=== PATIENT | female | born 2000 | race Caucasian/White ===

== ENCOUNTER 2021-02-02 20:22 | Outpatient (CLI) | payer SELFPAY ==
[~2021-02-02] VITALS: Ht 157.5 cm; Wt 66.5 kg
--- NOTE | 2021-02-02 20:30 | NUR ---
PT ARRIVED TO UNIT AMBULATORY WITH A FRIEND WITH COMPLAINTS OF CONTRACTIONS AND BACK PAIN THAT BEGAN AT 0800 TODAY BUT BECAME FOR UNCOMFORTABLE AROUND 1700 THIS EVENING. PT IS A [id number] AT 32.4 WEEKS TODAY. PT SPEAKS NO CITIZEN OF [place] BUT HER SUPPORT PERSON SPEAKS CITIZEN OF [place] BUT STATES THAT SHE ONLY MET THE PT YESTERDAY AT LATTER DAY. PT WAS AN [facility] IN [facility] AND RECENTLY MOVED TO THE [facility] IN OCTOBER OF 2020. PT STATES THAT SHE WAS SEEN IN DECEMBER IN [place] FOR ABDOMINAL PAIN AND DEHYDRATION, WHILE THERE RECEIVED STEROIDS AND COVID SWAB WAS NEGATIVE. PT STATES SHE HAS BEEN IN [place] FOR A MONTH. FOB NOT INVOLVED. STATES SHE CURRENTLY LIVE WITH A WOMAN THE IS HER MOTHER FIGURE AND FEELS SAFE AND HAS SUPPORT SYSTEM. LPNC AT 31.6 WEEKS, HX OF SAB X1. EFM X2 APPLIED, VS OBTAINED, SVE PERFORMED BY Brittany STEVENS RN.
[2021-02-02 20:42] VITALS: BP 114/71; PULSE 101
[2021-02-02 20:45] VITALS: TEMP 98.3
[2021-02-02] MEDS ORDERED: PRENATAL PO (21:16)
[2021-02-02 21:42] VITALS: BP 109/57; PULSE 85
--- NOTE | 2021-02-02 21:42 | NUR ---
SVE unchanged. 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 Off monitor, up to bathroom.
--- NOTE | 2021-02-02 22:15 | NUR ---
DISCHARGE INSTRUCTIONS REVIEWED WITH PT AND FRIEND, UNDERSTANDING VERBALIZED. QUESTIONS ENCOURAGED AND ANSWERED. PT OFF THE UNIT AMBULATORY WITH FRIEND FOR HOME.
== END 2021-02-02 22:10 | disposition home or self-care (01) ==
LOC: LDRO 20:22 → LDR 20:22 → LDRO 22:10
DX: O62.9 Abnormality of forces of labor, unspecified (principal); O26.893 Other specified pregnancy related conditions, third trimester; M54.5 Low back pain; Z3A.32 32 weeks gestation of pregnancy
CPT/HCPCS: OP

== ENCOUNTER 2021-04-06 16:56 | Emergency (ER) | payer MEDICAID ==
[~2021-04-06] VITALS: Ht 160 cm; Wt 57.3 kg
[~2021-04-06 16:56] MED LIST: PRENATAL PO
[2021-04-06 18:19] VITALS: BP 124/70; PULSE 76; TEMP 97.2
[2021-04-06] MEDS ORDERED: SENOKOT8.6 MG PO (18:43)
[2021-04-06] MEDS ORDERED: MIRALAX510G PO (18:43)
== END 2021-04-06 18:55 | disposition home or self-care (01) ==
LOC: COL.ER 16:56
DX: K59.00 Constipation, unspecified (principal)